=== PATIENT | female | born 2000 | race Caucasian/White ===

== ENCOUNTER 2024-01-17 18:26 | Emergency (ER) | payer SELFPAY ==
[~2024-01-17] VITALS: Ht 160 cm; Wt 59.0 kg
[2024-01-17 19:42] LABS: BASO % 0.5 % (0.0-1.0); EOS # 0.1 10*3/uL (0.0-0.4); EOS % 1.3 % (1.0-4.0); HEMATOCRIT 39.2 % (37.0-47.0); LYMPH # 2.1 10*3/uL (1.3-4.4); LYMPH % 25.3 % (27.0-41.0); MEAN CELL VOLUME 89.5 fl (81.0-99.0); MEAN CORPUSCULAR HGB 30.6 pg (27.0-31.0); MEAN CORPUSCULAR HGB CONC 34.2 g/dl (33.0-37.0); MEAN PLATELET VOLUME 10.6 fl (9.6-12.3); MONO # 0.7 10*3/uL (0.1-1.0); MONO % 7.9 % (3.0-9.0); NEUT # 5.3 10*3/uL (2.3-7.9); NEUT % 64.9 % (47.0-73.0); PLATELET COUNT AUTOMATED 260 10*3/uL (130-400); RED BLOOD COUNT 4.38 10*6/uL (4.10-5.10); RED CELL DISTRI WIDTH 12.1 % (0-14.5); WHITE BLOOD COUNT 8.2 10*3/uL (4.8-10.8)
[2024-01-17 20:00] LABS: BUN 6 mg/dl (9-23); CHLORIDE 107 mmol/L (98-107); POTASSIUM 3.1 mmol/L (3.4-5.1)
[2024-01-17] MEDS ORDERED: ADDERALL5 MG PO (20:03)
[2024-01-17] MEDS ORDERED: MIXED AMPHETAMI15 MG PO (20:04)
[2024-01-17] MEDS ORDERED: POTASSIUM CHLORIDE 20 MEQ TAB PO ONE (20:10)
== END 2024-01-17 20:33 | disposition home or self-care (01) ==
LOC: ED 18:26
PROVIDERS: Nurse Practitioner Family
DX: R07.89 Other chest pain (principal); E87.6 Hypokalemia; Z88.1 Allergy status to other antibiotic agents

== ENCOUNTER 2024-12-09 18:20 | Emergency (ER) | payer SELFPAY ==
[~2024-12-09] VITALS: Ht 162.5 cm; Wt 61.2 kg
[~2024-12-09 18:20] MED LIST: ADDERALL5 MG PO; MIXED AMPHETAMI15 MG PO
[2024-12-09] MEDS ORDERED: Lidocaine Hydrochloride 15 ML UDC PO ONE (20:35)
== END 2024-12-09 21:16 | disposition home or self-care (01) ==
LOC: ED 18:20
DX: K02.9 Dental caries, unspecified (principal); Z79.899 Other long term (current) drug therapy; Z88.1 Allergy status to other antibiotic agents